=== PATIENT | female | born 1985 | race Caucasian/White ===

== ENCOUNTER 2018-09-19 06:16 | Emergency (ER) | payer MEDICAID ==
[~2018-09-19] VITALS: Ht 165.1 cm; Wt 81.0 kg
[2018-09-19] MEDS ORDERED: SODIUM CHLORIDE 0.9% 1,000 ML IV ONE (07:39)
[2018-09-19] MEDS ORDERED: ACETAMINOPHEN 325MG TABLET PO STA (07:39)
[2018-09-19] MEDS ORDERED: DEXAMETHASONE 10 MG/ML VIAL IM ONE (07:45)
[2018-09-19] MEDS ORDERED: AMOXICILLIN/POTASSIUM CLAVULANATE 875/125MG TAB PO ONE (07:45)
[2018-09-19 08:14] LABS: BASOPHILS % 0.2 % (0.0-2.0); EOSINOPHILS % 0.2 % (0.0-5.0); HEMATOCRIT. 35.4 % (36.0-48.0); LYMPHOCYTES % 10.2 % (20.0-50.0); MEAN CORPUSCULAR HEMOGLOBIN 29.1 pg (28.0-32.0); MEAN CORPUSCULAR VOLUME 86.1 fL (81.0-99.0); MEAN PLATELET VOLUME 8.8 fl (7.4-10.4); MONOCYTES % 7.4 % (2.0-8.0); PLATELET 255 x1000/uL (130-400); RED BLOOD CELL COUNT 4.12 mill/uL (4.2-5.4); RED CELL DISTRIBUTION WIDTH 14.4 % (11.6-14.6)
[2018-09-19 08:21] LABS: CHLORIDE 104 mEq/L (98-107)
[2018-09-19 08:43] LABS: HCG SCREEN NEGATIVE
[2018-09-19 11:30] VITALS: BP 123/97
[2018-09-19] MEDS ORDERED: POTASSIUM CHLORIDE 20MEQ TABLET SR PO ONE (11:30)
== END 2018-09-19 11:41 | disposition home or self-care (01) ==
LOC: ER 08:27
DX: J02.9 Acute pharyngitis, unspecified (principal); R00.0 Tachycardia, unspecified; E87.6 Hypokalemia; J45.909 Unspecified asthma, uncomplicated; R05 Cough
CPT/HCPCS: 36415; 80053; 84484; 84703; 85025; 93005; 96372; 99285; J1100; J7030